=== PATIENT | female | born 1940 | race Caucasian/White ===

== ENCOUNTER → 2016-10-08 | Outpatient (CLI) | payer MEDICARE ==
[~2016-10-08] MED LIST: ALPR-475 PO; B12/1TAB3 PO; BACI28.33 TP; CLON0.2T PO; DOCU-30 PO; LANS30CA16 PO; NAPR220C2 PO; NICO1PAT31 EXT; OMNIPAQUE 350 MG/ML, 100ML BOTTLE ONE; OXYC-302 PO; PANT20TA2 PO; PARO30TA45 PO; PHEN1SUP77 RC; PHEN26CR EXT; SIME80TA PO; ducolax PO
== END | disposition home or self-care (01) ==
LOC: CFH 13:46
PROVIDERS: ATTEND Specialist
DX: J43.2 Centrilobular emphysema (principal); C56.1 Malignant neoplasm of right ovary; K44.9 Diaphragmatic hernia without obstruction or gangrene; N28.1 Cyst of kidney, acquired; K43.9 Ventral hernia without obstruction or gangrene; M47.896 Other spondylosis, lumbar region
CPT/HCPCS: 71260; 74177; Q9967